=== PATIENT | female | born 1935 | race Caucasian/White ===

== ENCOUNTER → 2020-07-29 | Day surgery (SDC) | payer MEDICARE ==
[~2020-07-29] MED LIST: ADVIL200 M1 PO; ASPIRIN EC81 MG PO; CALCIUM MAGNES1 EACH PO; DITROPAN5 MG PO; HCTZ25 MG PO; ISTALOL2.5 ML OU; PRILOSEC20 MG PO; SUPER B-50 COM1 EACH PO; TOPROL XL 25MG25 MG PO; VITAMIN E100 UNI1 PO; ZOCOR20 MG PO
== END | disposition home or self-care (01) ==
LOC: FAS 09:21
DX: K64.4 Residual hemorrhoidal skin tags (principal); K64.8 Other hemorrhoids; K21.9 Gastro-esophageal reflux disease without esophagitis; K57.30 Diverticulosis of large intestine without perforation or abscess without bleeding; E78.5 Hyperlipidemia, unspecified; I10 Essential (primary) hypertension; G47.419 Narcolepsy without cataplexy; Z20.822 Contact with and (suspected) exposure to COVID-19; Z87.19 Personal history of other diseases of the digestive system; Z79.899 Other long term (current) drug therapy; Z90.49 Acquired absence of other specified parts of digestive tract; Z98.890 Other specified postprocedural states; Z82.49 Family history of ischemic heart disease and other diseases of the circulatory system; Z87.891 Personal history of nicotine dependence
CPT/HCPCS: J2704; J7120